=== PATIENT | female | born 1965 | race Caucasian/White ===

== ENCOUNTER → 2025-01-13 | Outpatient (CLI) | payer SELFPAY ==
--- NOTE | 2025-01-13 14:28 | XR_ITS ---
EXAMINATION: XR cervical spine 2-3V ORDERING PROVIDER: Bradley Coreas NP HISTORY: NECK PAIN TECHNIQUE: 4 radiographs of the cervical spine were obtained. COMPARISON: None. FINDINGS: No acute fracture or dislocation. Straightening of the normal cervical lordotic curvature which may be positional on the basis of muscle spasm. Mild degenerative disc at C5-C6 and moderate at C6-C7 with disc osteophyte formation. Additional multilevel small osteophytes. Mild to moderate C5-T1 facet arthrosis. Mild multilevel uncovertebral hypertrophy. Lateral masses symmetric. Dens grossly intact, though tip not well evaluated. Prevertebral soft tissues not abnormally thickened. IMPRESSION: [id number] multilevel degenerative changes most pronounced at C6-C7 with degenerative disc and facet arthrosis.
--- NOTE | 2025-01-13 14:30 | XR_ITS ---
Examination: Screening digital mammography, bilateral Computer aided detection 3-D breast Tomosynthesis, bilateral Date and time of exam: 01/13/2025, 2:20 PM Comparisons: The 2023 Indications: Screening Technique: Nonmagnified MLO, CC views of the breasts to been obtained, reconstructed from 3-D Tomosynthesis images. R2 computer aided detection program utilized for evaluation of suspicious masses and/or abnormal calcifications. 3-D Tomosynthesis images obtained. Technologist: Findings: There are scattered areas of fibroglandular density. No evidence of abnormal masses or suspicious calcifications. Impression: BI-RADS category 1: Negative findings (within normal) Recommend 1 year follow-up mammogram
== END | disposition home or self-care (01) ==
PROVIDERS: Referring Provider Physician Assistant; Visit Provider Nurse Practitioner Family
DX: Z12.31 Encounter for screening mammogram for malignant neoplasm of breast (principal); R92.313 Mammographic fatty tissue density, bilateral breasts; M50.323 Other cervical disc degeneration at C6-C7 level
CPT/HCPCS: 72040; 77063; 77067